=== PATIENT | female | born 1990 | race Hispanic/Latino ===

== ENCOUNTER 2021-01-15 12:13 | Outpatient (CLI) | payer OTHER | END 2021-01-15 12:14 | disposition home or self-care (01) | LOC: DTY/OP 12:13 | PROVIDERS: ATTEND Surgery | DX: E66.01 Morbid (severe) obesity due to excess calories (principal) | CPT/HCPCS: 97802 ==

== ENCOUNTER 2021-04-28 11:30 | Inpatient (IN) | payer OTHER ==
[2021-04-30 11:23] VITALS: BMI 43.2
[2021-05-01] MEDS ORDERED: Lidocaine 2% Jelly 5 ML TUBE ONE (06:18)
[2021-05-01] MEDS ORDERED: Fentanyl 250 MCG/5 ML VIAL ONE (06:18)
[2021-05-01] MEDS ORDERED: ceFAZolin 2 GM/DEX 5% 100 ML BAG ONE (06:21)
[2021-05-01] MEDS ORDERED: Heparin 5,000 UNITS/ML VIAL ONE (06:22)
[2021-05-01] MEDS ORDERED: Scopolamine 1.5 mg/72 hour Patch ONE (06:26)
[2021-05-01] MEDS ORDERED: Midazolam HCl 2 mg/2 ml Vial ONE (06:50)
[2021-05-01] MEDS ORDERED: Bupivacaine 0.25% HCL 30 ML VIAL ONE (06:53)
[2021-05-01] MEDS ORDERED: Lidocaine 1% w/Epinephrine 1:100K 20 ML VIAL ONE (06:53)
[2021-05-01] MEDS ORDERED: Ondansetron PF 4 MG/2 ML Vial ONE ×2 (07:31→09:59)
[2021-05-01] MEDS ORDERED: Succinylcholine 200 MG/10 ml SYRINGE FS ONE (07:31)
[2021-05-01] MEDS ORDERED: PHENYLEPHRINE-NS 100 MCG/ML 10 ML SYRINGE ONE (07:31)
[2021-05-01] MEDS ORDERED: Rocuronium Bromide 10 MG/ML (10ML VIAL) ONE (07:31)
[2021-05-01] MEDS ORDERED: PROPOFOL 200 MG/20 ML VIAL ONE (07:31)
[2021-05-01] MEDS ORDERED: ePHEDrine 50 MG/ML VIAL ONE (07:31)
[2021-05-01] MEDS ORDERED: Glycopyrrolate 0.2 MG/ML 5 ML SYRINGE ONE (07:31)
[2021-05-01] MEDS ORDERED: Dexamethasone 20 MG/5 ML VIAL ONE (07:31)
[2021-05-01] MEDS ORDERED: Lidocaine 1% PF 5 ML VIAL ONE (07:31)
[2021-05-01] MEDS ORDERED: Promethazine HCl 25 MG/ML VIAL IM PRN ×3 (09:52→11:59)
[2021-05-01] MEDS ORDERED: Promethazine HCl 25 MG/ML VIAL IVPB PRN (09:52)
[2021-05-01] MEDS ORDERED: Ondansetron HCl/PF 4 MG/2 ML Vial IVP PRN (09:52)
[2021-05-01] MEDS ORDERED: Fentanyl 100 MCG/2 ML VIAL ONE (09:59)
[2021-05-01] MEDS ORDERED: fentaNYL Citrate/PF 2,000 MCG in Sodium Chloride 0.9% 60 ML IV PRN (10:25)
[2021-05-01] MEDS ORDERED: Ondansetron PF 4 MG/2 ML Vial IVP PRN ×2 (10:25→11:59)
[2021-05-01] MEDS ORDERED: diphenhydrAMINE 25 MG CAP PO PRN (10:25)
[2021-05-01] MEDS ORDERED: diphenhydrAMINE 50 MG/ML VIAL IVP PRN ×2 (10:25→11:59)
[2021-05-01] MEDS ORDERED: Naloxone HCl 0.4 mg/ml Vial IV PRN (10:25)
[2021-05-01] MEDS ORDERED: diphenhydrAMINE 50 MG/ML VIAL IM PRN (10:25)
[2021-05-01] MEDS ORDERED: Ketorolac Tromethamine 30 MG/ML VIAL IVP PRN (10:25)
[2021-05-01] MEDS ORDERED: Zolpidem Tartrate 5 MG TAB PO PRN (10:25)
[2021-05-01] MEDS ORDERED: Communication Order-Pharmacy FS SCH (10:30)
[2021-05-01] MEDS ORDERED: Dextrose 5% in Water 1,000 ML IV PRN (11:59)
[2021-05-01] MEDS ORDERED: hydrALAZINE 20 MG/ML VIAL SLOW IVP PRN (11:59)
[2021-05-01] MEDS ORDERED: Dextrose 50% Abboject 50 ML SYRINGE SLOW IVP PRN (11:59)
[2021-05-01] MEDS ORDERED: Hydrocodone-Acetamin 15 ML UDCUP PO PRN (11:59)
[2021-05-01] MEDS: D5 1/2 NS w/20 mEq KCL 1,000 ML IV SCH ×2 (12:13→20:24)
[2021-05-01] MEDS ORDERED: Enoxaparin Sodium 40 MG/0.4 ML SYRINGE SC SCH (21:00)
[2021-05-02 05:43] LABS: #Lymphocytes 2.2 thou/uL (1.20-3.40); #Monocytes 0.8 thou/uL (0.11-0.59); %Basophils 0.1 % (0.0-1.0); %Eosinophils 0.2 % (0.0-10.0); %Lymphocytes 14.4 % (21.0-51.0); %Neutrophils 80.3 % (42.0-75.0); Hemoglobin 13.3 g/dL (12.0-16.0); Mean Corpuscular HGB CONC 34.2 g/dL (32.0-36.0); Mean Corpuscular Hemoglobin 28.9 pg (27.0-31.0); Mean Corpuscular Volume 84.6 fL (78.0-98.0); Mean Platelet Volume 7.6 fL (7.4-10.4); Platelet Count 373 thou/uL (130-400); Red Blood Cell (RBC) Count 4.58 mill/uL (4.20-5.40)
[2021-05-02 06:04] LABS: Anion Gap 11 mmol/L (10-20); BUN (Urea Nitrogen) 4 mg/dL (7.0-18.7); Calc. Creatinine Clearance 227 mL/min (70-130); Calcium 9.4 mg/dL (7.8-10.44); Carbon Dioxide 29 mmol/L (22-29); Chloride 103 mmol/L (98-107); Glucose 105 mg/dL (70-105); Potassium 3.9 mmol/L (3.5-5.1); Sodium 139 mmol/L (136-145)
[2021-05-02] MEDS: D5 1/2 NS w/20 mEq KCL 1,000 ML IV SCH ×3 (06:43→17:56)
[2021-05-02] MEDS: Pantoprazole 40 MG VIAL IVP SCH (08:13)
[2021-05-02] MEDS: Losartan 25 MG TAB PO SCH (08:13)
[2021-05-02] MEDS: Acetaminophen 325 MG TAB PO PRN (17:55)
[2021-05-03 07:11] VITALS: BP 141/89; TEMP 97.3
[2021-05-03] MEDS: Acetaminophen 325 MG TAB PO PRN (07:34)
[2021-05-03] MEDS: Pantoprazole 40 MG VIAL IVP SCH (09:10)
[2021-05-03] MEDS: Losartan 25 MG TAB PO SCH (09:10)
== END 2021-05-03 10:54 | disposition home or self-care (01) | DRG 620 ==
LOC: SURG A 05-01 06:02
PROVIDERS: ADMIT Surgery; ATTEND Surgery
PROC: 0D164ZA Bypass Stomach to Jejunum, Percutaneous Endoscopic Approach (ICD-10-PCS; principal; 2021-05-01)
PROC: 8E0W4CZ Robotic Assisted Procedure of Trunk Region, Percutaneous Endoscopic Approach (ICD-10-PCS; 2021-05-01)
DX: E66.01 Morbid (severe) obesity due to excess calories (principal); K92.0 Hematemesis; Z20.822 Contact with and (suspected) exposure to COVID-19; F32.A Depression, unspecified; K21.9 Gastro-esophageal reflux disease without esophagitis; F41.9 Anxiety disorder, unspecified; I10 Essential (primary) hypertension; Z68.41 Body mass index [BMI] 40.0-44.9, adult; Z88.8 Allergy status to other drugs, medicaments and biological substances; Z01.818 Encounter for other preprocedural examination
CPT/HCPCS: 36415; 71046; 80048; 80053; 83036; 84703; 85025; 93005; 93010; C9113; J1100; J1644; J1650; J2250; J2405; J2704; J3010; J3480; J3490; S0020; U0003; U0005

== ENCOUNTER 2021-04-29 07:31 | Outpatient (CLI) | payer OTHER ==
[2021-04-29 10:07] LABS: #Eosinphils 0.2 10x3/uL (0.0-0.5); #Monocytes 0.4 10x3/uL (0.0-1.1); %Basophils 0.5 % (0.0-2.0); %Lymphocytes 25.6 % (18.0-47.0); %Monocytes 5.6 % (0.0-10.0); Hemoglobin 13.4 g/dL (12.0-15.5); Mean Corpuscular HGB CONC 32.9 g/dL (32.0-36.0); Mean Corpuscular Hemoglobin 27.2 pg (27.0-33.0); Mean Corpuscular Volume 82.7 fl (81.6-98.3); Platelet Count 383 10x3/uL (150-450); Red Blood Cell (RBC) Count 4.92 10x6/uL (3.90-5.03); White Blood Cell (WBC) Count 7.7 10x3/uL (3.5-10.5)
[2021-04-29 10:17] LABS: BHCG - Serum Negative (NEGATIVE); Pregs Control Background? CLEAR/WHITE (CLR/WHITE); Pregs Control Bar Appear? YES (CONTROL BAR)
[2021-04-29 10:26] LABS: ALT (SGPT) 50 U/L (8-55); AST (SGOT) 26 U/L (5-34); Albumin 4.3 g/dL (3.5-5.0); Alkaline Phosphatase 78 U/L (40-110); Anion Gap 13 mmol/L (10-20); BUN (Urea Nitrogen) 6 mg/dL (7.0-18.7); Bilirubin, Total 0.4 mg/dL (0.2-1.2); Calc. Creatinine Clearance 0 mL/min (70-130); Carbon Dioxide 27 mmol/L (22-29); Chloride 103 mmol/L (98-107); Globulin 2.6 g/dL (2.4-3.5); Glucose 98 mg/dL (70-105); Protein, Total 6.9 g/dL (6.0-8.3); Sodium 139 mmol/L (136-145)
[2021-04-29 14:25] LABS: Hemoglobin A1c 5.4 % (4.0-6.0)
[2021-04-29 21:58] LABS: SARS-CoV-2 PCR by NAA Not Detected (NotDetected)
== END 2021-04-29 07:32 | disposition home or self-care (01) ==
LOC: LABBT 07:31
PROVIDERS: ATTEND Surgery
DX: Z01.818 Encounter for other preprocedural examination (principal); E66.01 Morbid (severe) obesity due to excess calories; Z20.822 Contact with and (suspected) exposure to COVID-19
CPT/HCPCS: 71046; 80053; 83036; 84703; 85025; 93005; 93010; U0003; U0005